=== PATIENT | male | born 1965 | race Caucasian/White ===

== ENCOUNTER 2016-10-18 17:33 | Emergency (ER) | payer OTHER ==
--- NOTE | 2016-10-18 19:30 | ED ---
Skin Complaint - HPI Summary HPI Summary: Pt here w/ laceration to Lt inner arm last night. He is unaware of how this occurred as he was intoxicated. Noticed today - sore. Denies sensation of FB but again he has no recall of events. Denies numbness, tingling, weakness here. No other injuries to report. Imms are UTD. - History of Current Complaint Chief Complaint: EDLacSutureRecheck Time Seen by Provider: 10/18/16 18:05 Stated Complaint: RIPPED FLESH UNDERARM Hx Obtained From: Patient Pain Intensity: 1 - Allergy/Home Medications Allergies/Adverse Reactions: Allergies Allergy/AdvReac Type Severity Reaction Status Date / Time Erythromycin Allergy Unknown Verified 10/18/16 17:35 Reaction Details PMH/Surg Hx/FS Hx/Imm Hx Previously Healthy: Yes Endocrine/Hematology History: Denies: Hx Anticoagulant Therapy, Hx Blood Disorders - Immunization History Date of Tetanus Vaccine: unknown Date of Influenza Vaccine: none Immunizations Up to Date: Yes Infectious Disease History: No Infectious Disease History: Denies: Hx of Known/Suspected MRSA, Traveled Outside the in Last 30 Days - Family History Known Family History: Positive: None - Social History Occupation: Employed Full-time - Computer work - typing, lifting Lives: Alone Alcohol Use: Weekly Hx Substance Use: No Substance Use Type: Reports: None Hx Tobacco Use: Yes Smoking Status (MU): Former Smoker Review of Systems Constitutional: Negative Eyes: Negative Negative: Photophobia, Blurred Vision Musculoskeletal: Negative - no neck pain Skin: Other - see HPI Neurological: Negative Negative: Headache, Weakness, Paresthesia, Numbness, Syncope, Slurred Speech Psychological: Normal All Other Systems Reviewed And Are Negative: Yes Physical Exam Triage Information Reviewed: Yes Vital Signs On Initial Exam: Initial Vitals Temp Pulse Resp BP Pulse Ox 98.5 F 83 16 143/77 95 10/18/16 17:35 10/18/16 17:35 10/18/16 17:35 10/18/16 17:35 10/18/16 17:35 Vital Signs Reviewed: Yes Appearance: Positive: Well-Appearing, No Pain Distress, Well-Nourished Skin: Positive: Warm - flap of dermis retracted with underlying subcutaneous tissue along central Lt inner arm - distal to axilla - no active d/c Head/Face: Positive: Normal Head/Face Inspection Eyes: Positive: Normal, EOMI ENT: Positive: Hearing grossly normal Respiratory/Lung Sounds: Positive: Breath Sounds Present Cardiovascular: Positive: Pulses are Symmetrical in both Upper and Lower Extremities Musculoskeletal: Positive: Normal, Strength/ROM Intact Neurological: Positive: Normal, Sensory/Motor Intact, Alert, Oriented to Person Place, Time, CN Intact II-III Psychiatric: Positive: Normal Procedures - Laceration/Wound Repair 1 Location: upper extremity - Lt inner arm Description: Irregular - skin tear with flap - jagged edge Anesthesia: Local, 1.0%, Lido - 20cc Length, Depth and Shape: 8cm c-shaped flap x 3mm (dermis) Betadine Prep?: Yes Irrigated w/ Saline (ccs): 100 - hibaclens with sterile water Laceration/Wound Explored: clean Closure: Single Layer Suture Type: Nylon - 5-0, 4-0 Number of Sutures: 11 - 10 simple interrupted; 1 modified purse string Layer Closure?: No Sterile Dressing Applied?: Yes - triple anbx ointment + sterile gauze + MERLIN wrap Diagnostics - Vital Signs Vital Signs Temp Pulse Resp BP Pulse Ox 10/18/16 17:37 98.4 F 81 16 143/77 97 10/18/16 17:35 98.5 F 83 16 143/77 95 - Laboratory Lab Statement: Any lab studies that have been ordered have been reviewed, and results considered in the medical decision making process. Course/Dx - Course Course Of Treatment: Pt here w/ Lt inner arm laceration which occurred last night. He was intoxicated at the time of injury so does not recall the mechanism nor any contact he had with the wound until he woke up this morning. Reports no bleeding he recalls. Cleaned and dressed prior to arrival. Will start anbx given the nature of the injury and lack of history. Wound closed. Advised care (wound cleansing, avoiding FROM to prevent tearing sutures) and close f/u w/ plastic surgery to monitor healing. Reviewed danger s/sx of when to return to ED - pt agrees w/ plan,. - Diagnoses Provider Diagnoses: Arm laceration Discharge - Discharge Plan Condition: Stable Disposition: HOME Prescriptions: Cephalexin CAP* [Keflex CAP*] 500 mg PO BID #18 cap Patient Education Materials: Laceration (ED), Care For Your Stitches (ED) Forms: *Work Release Referrals: Castillo Escalona MD [Primary Care Provider] - Additional Instructions: Keep dressing in place for 48 hours - after this time you may remove - gently wash wound with soap and water - rinse well and pat dry with clean cloth - reapply triple antibiotic ointment and clean gauze dressing with MERLIN wrap. Follow-up with plastic surgery in tomorrow - call to schedule an appointment in the morning. Complete antibiotics as directed You may apply ice to the area for pain relief/swelling. You may also take ibuprofen with food for pain/swelling. *If you develop redness, swelling, streaking, purulent drainage, fever, chills, return to ED
[2016-10-18] MEDS ORDERED: Lidocaine 2% 10 ML* VIAL INJ ONE (19:44)
--- NOTE | 2016-10-18 19:53 | RAD ---
HISTORY: Penetrating trauma, evaluate for radiopaque foreign body COMPARISONS: None VIEWS: 2, Frontal and lateral views of the left upper arm FINDINGS: BONE DENSITY: Normal. BONES: There is no displaced fracture. JOINTS: There is no arthropathy. ALIGNMENT: There is no dislocation. SOFT TISSUES: Unremarkable. OTHER FINDINGS: There is no radiopaque foreign body. There is metallic jewelry noted in relation to the chest wall. IMPRESSION: NO ACUTE OSSEOUS INJURY. NO RADIOPAQUE FOREIGN BODY. IF SYMPTOMS PERSIST, RECOMMEND REPEAT IMAGING.
[2016-10-18] MEDS ORDERED: Lidocaine 1% INJ* 10 MG/ML 30 ML SDV ONE (20:06)
[2016-10-18] MEDS ORDERED: Lidocaine 1% INJ* 10 MG/ML 30 ML SDV INJ ONE (20:14)
[2016-10-18] MEDS ORDERED: Cephalexin CAP* 500 MG PO ONE (21:15)
[2016-10-18 22:07] VITALS: BP 131/74
== END 2016-10-18 22:06 | disposition home or self-care (01) ==
LOC: ED 17:33
DX: S41.112A Laceration without foreign body of left upper arm, initial encounter (principal); X58.XXXA Exposure to other specified factors, initial encounter; Y92.9 Unspecified place or not applicable
CPT/HCPCS: 12004; 96372; 99282; A9270-GY; J2001

== ENCOUNTER 2016-10-25 19:36 | Emergency (ER) | payer OTHER ==
[2016-10-25 19:47] VITALS: BP 136/67
--- NOTE | 2016-10-25 20:46 | ED ---
Upper Extremity Pain - HPI Summary HPI Summary: 51M presents with bleeding from laceration on left arm. He states had sutures placed here a week ago. He occasionally has yellow drainage from the area. He denies any fever or spreading redness. HE has been placing neosporin and wrapping the area at night. He states the bleeding is minimal and occurs when he takes the bandage of. - History of Current Complaint Chief Complaint: EDLacSutureRecheck Stated Complaint: BLEED UNDER LT ARM FROM STITCHES Time Seen by Provider: 10/25/16 19:58 - Allergies/Home Medications Allergies/Adverse Reactions: Allergies Allergy/AdvReac Type Severity Reaction Status Date / Time Erythromycin Allergy Unknown Verified 10/18/16 17:35 Reaction Details PMH/Surg Hx/FS Hx/Imm Hx Endocrine/Hematology History: Denies: Hx Anticoagulant Therapy, Hx Blood Disorders, Hx Diabetes Cardiovascular History: Denies: Hx Pacemaker/ICD - Immunization History Date of Tetanus Vaccine: unknown Date of Influenza Vaccine: none Infectious Disease History: No Infectious Disease History: Denies: Hx of Known/Suspected MRSA, Traveled Outside the [place] in Last 30 Days - Family History Known Family History: Positive: None - Social History Alcohol Use: Weekly Hx Substance Use: No Substance Use Type: Reports: None Hx Tobacco Use: Yes Smoking Status (MU): Former Smoker Review of Systems Negative: Fever Negative: Chest Pain Negative: Shortness Of Breath Positive: Other - bleeding from laceration All Other Systems Reviewed And Are Negative: Yes Physical Exam Triage Information Reviewed: Yes Vital Signs On Initial Exam: Initial Vitals Temp Pulse Resp BP Pulse Ox 97.7 F 78 16 136/67 100 10/25/16 19:44 10/25/16 19:44 10/25/16 19:44 10/25/16 19:44 10/25/16 19:44 Vital Signs Reviewed: Yes Appearance: Positive: Well-Appearing Skin: Positive: Warm, Dry, Other - 4cm healing laceration with 11 sutures present on left medial aspect of humerus, minimial bleeding on bandage but no active bleeding, no dehiscence or open areas, no drainage Head/Face: Positive: Normal Head/Face Inspection Eyes: Positive: Normal, Conjunctiva Clear Respiratory/Lung Sounds: Positive: Clear to Auscultation, Breath Sounds Present Cardiovascular: Positive: Normal, RRR Musculoskeletal: Positive: Strength/ROM Intact - left arm Diagnostics - Vital Signs Vital Signs Temp Pulse Resp BP Pulse Ox 10/25/16 19:44 97.7 F 78 16 136/67 100 - Laboratory Lab Statement: Any lab studies that have been ordered have been reviewed, and results considered in the medical decision making process. Course/Dx - Course Course Of Treatment: 51M presents with bleeding from laceration on left arm. He states had sutures placed here a week ago. He occasionally has yellow drainage from the area. He denies any fever or spreading redness. He has been placing neosporin and wrapping the area at night. He states the bleeding is minimal and occurs when he takes the bandage of. on exam healing laceration present with no active bleeding or discharge. dr jones examined wound and agrees that looked good. will get wound culture but patient already on bactrim and no infection seen so will not add anything at this point. patient understands and agrees with plan. - Diagnoses Differential Diagnosis/HQI/PQRI: Positive: Other - healing wound, dehiscence, laceration Provider Diagnoses: Healing laceration Discharge - Discharge Plan Condition: Good Disposition: HOME Referrals: Castillo Escalona MD [Primary Care Provider] - Additional Instructions: Continue place neosporin Follow up with primary for sutures removal or wednesday Return to ED or urgent care if sutures can not be removed by primary by Wednesday Return to ED if develop any spreading redness or fever or any new or worsening symptoms
== END 2016-10-25 21:08 | disposition home or self-care (01) ==
LOC: ED 19:36
DX: Z09 Encounter for follow-up examination after completed treatment for conditions other than malignant neoplasm (principal); Z87.891 Personal history of nicotine dependence
CPT/HCPCS: 87070; 87205

== ENCOUNTER 2017-05-01 20:31 | Emergency (ER) | payer OTHER ==
[2017-05-01 22:58] VITALS: BP 133/78
--- NOTE | 2017-05-02 07:37 | RAD ---
HISTORY: Loss of consciousness, head injury 4 days ago COMPARISONS: None TECHNIQUE: Multiple contiguous axial CT scans were obtained of the head without intravenous contrast. FINDINGS: Evaluation is limited by streak artifact from metallic jewelry in the patient's ears. HEMORRHAGE/INFARCT: There is no hemorrhage or acute infarct. MASSES/SHIFT: There is no mass or shift. EXTRA-AXIAL SPACES: There are no extra-axial fluid collections. SULCI AND VENTRICLES: The sulci and ventricles are normal in size and position for the patient's stated age. CEREBRUM: There are no focal parenchymal abnormalities. BRAINSTEM: There are no focal parenchymal abnormalities. CEREBELLUM: There are no focal parenchymal abnormalities. VESSELS: The vessels are grossly normal. PARANASAL SINUSES: The paranasal sinuses are clear. ORBITS: The orbits are unremarkable. BONES AND SOFT TISSUE: No bone or soft tissue abnormalities are noted. OTHER: None IMPRESSION: NO ACUTE INTRACRANIAL PATHOLOGY.
--- NOTE | 2017-05-04 19:28 | ED ---
Karen Mendoza Abhishek, scribed for Alan Harp MD on 05/01/17 at 2215 . Head Injury - HPI Summary HPI Summary: This patient is a 52 year old M presenting to [facility] with a chief complaint of head injury since 4 days ago. Pt states he has had a prior recent head injury that resulted in a laceration approximately 4 days ago. Pt states he fell into a table and lost LOC post injury. The patient rates the pain 1/10 in severity. Symptoms aggravated by nothing. Symptoms alleviated by nothing. Patient reports bleeding. Patient denies dizziness, and nausea. Pt states he received his last Tetnus 8 months ago. Medications reviewed and reported. Allergies noted and reported - History Of Current Complaint Chief Complaint: EDHeadInjury Stated Complaint: HEAD INJURY Hx Obtained From: Patient Mechanism Of Injury: Blunt Trauma - On a table Severity Currently: Mild Severity Initially: Mild Pain Intensity: 1 Pain Scale Used: 0-10 Numeric Location of Head Injury: Parietal - Left parietal - Allergies/Home Medications Allergies/Adverse Reactions: Allergies Allergy/AdvReac Type Severity Reaction Status Date / Time erythromycin base Allergy Unknown Verified 05/01/17 20:36 Reaction Details PMH/Surg Hx/FS Hx/Imm Hx Endocrine/Hematology History: Denies: Hx Anticoagulant Therapy, Hx Blood Disorders, Hx Diabetes Cardiovascular History: Denies: Hx Pacemaker/ICD - Immunization History Date of Tetanus Vaccine: unknown Date of Influenza Vaccine: none Immunizations Up to Date: Yes Infectious Disease History: No Infectious Disease History: Denies: Hx of Known/Suspected MRSA, Traveled Outside the [place] in Last 30 Days - Family History Known Family History: Positive: None - Social History Alcohol Use: Weekly Hx Substance Use: No Substance Use Type: Reports: None Hx Tobacco Use: Yes Smoking Status (MU): Former Smoker Review of Systems Constitutional: Negative Eyes: Negative ENT: Negative Cardiovascular: Negative Respiratory: Negative Gastrointestinal: Negative Genitourinary: Negative Musculoskeletal: Negative Skin: Other - Lacertion on the right hand; 5th finger laceration Neurological: Negative Psychological: Normal All Other Systems Reviewed And Are Negative: Yes Physical Exam Triage Information Reviewed: Yes Vital Signs On Initial Exam: Initial Vitals Temp Pulse Resp BP Pulse Ox 97.8 F 72 14 161/94 96 05/01/17 20:39 05/01/17 20:39 05/01/17 20:39 05/01/17 20:39 05/01/17 20:39 Vital Signs Reviewed: Yes Diagnostics - Vital Signs Vital Signs Temp Pulse Resp BP Pulse Ox 05/01/17 20:39 97.8 F 72 14 161/94 96 - Laboratory Lab Statement: Any lab studies that have been ordered have been reviewed, and results considered in the medical decision making process. - CT Head CT Interpretation Completed By: Radiologist - Negative CT Head scan. ED physician has reviewed this radiology report and agrees. Head Injury Course/Dx Course Of Treatment: The pt is a 52 y/o male with a chief complaint of laceration. The pt reportedly received this laceration in the left parietal region of the head after falling down and contact a portion of a table. The obset of the laceration/wound was 4 days ago. The wound is currently not discharging blood. The pt denies dizziness, and nausea. Immediately after the injury, pt states there was a "brief" LOC. The pt received a CT brain revealving normal head according to the ED physician. We were unable to sulture the wound due to the time duration since onset (4 days). The pt will be discharged home with a dx of laceration and mild concussion. - Diagnoses Provider Diagnoses: Laceration, Mild concussion Discharge - Discharge Plan Condition: Stable Disposition: HOME Patient Education Materials: Concussion (ED) Referrals: Castillo Escalona MD [Primary Care Provider] - The documentation as recorded by the Karen capps Abhishek accurately reflects the service I personally performed and the decisions made by , Alan Harp MD.
== END 2017-05-01 23:00 | disposition home or self-care (01) ==
LOC: ED 20:31
DX: S06.0X1A Concussion with loss of consciousness of 30 minutes or less, initial encounter (principal); S01.91XA Laceration without foreign body of unspecified part of head, initial encounter; W19.XXXA Unspecified fall, initial encounter; W22.09XA Striking against other stationary object, initial encounter; Y92.9 Unspecified place or not applicable; Z87.891 Personal history of nicotine dependence; Z88.3 Allergy status to other anti-infective agents
CPT/HCPCS: 70450; 99281

== ENCOUNTER 2018-10-07 20:52 | Emergency (ER) | payer OTHER ==
--- NOTE | 2018-10-07 22:35 | ED ---
Back Pain - HPI Summary HPI Summary: 53-year-old male presents with complaints of right-sided low back pain after a fall that occurred on 10/05/2018. Patient states he tripped and fell backwards landing on his buttocks. He was able to get up and ambulate immediately after the injury. States he subsequently developed the right-sided low back pain that is progressively worsened over the last 2 days. Pain radiates down the back of his right leg to about the mid thigh. Pain worsens with any type of movement or ambulation. Has been taking ibuprofen 200 mg up to 6 tablets at a time with very little relief in his pain. Last dose was at approximately 6 PM this evening. States he has used a heating pad with some relief in the pain. Denies numbness, tingling, weakness of the extremities, or loss of bowel or bladder control. - History of Current Complaint Chief Complaint: EDBackInjuryPain Stated Complaint: BACK PAIN PER PT Time Seen by Provider: 10/07/18 22:31 Hx Obtained From: Patient Pain Intensity: 7 - Allergies/Home Medications Allergies/Adverse Reactions: Allergies Allergy/AdvReac Type Severity Reaction Status Date / Time amoxicillin Allergy Unknown Verified 10/07/18 21:03 Reaction Details erythromycin base Allergy Unknown Verified 10/07/18 21:03 Reaction Details PMH/Surg Hx/FS Hx/Imm Hx Endocrine/Hematology History: Denies: Hx Anticoagulant Therapy, Hx Blood Disorders, Hx Diabetes Cardiovascular History: Reports: Hx Hypertension Denies: Hx Pacemaker/ICD Psychiatric History: Reports: Hx Depression - Immunization History Date of Tetanus Vaccine: unknown Date of Influenza Vaccine: none Immunizations Up to Date: Yes Infectious Disease History: No Infectious Disease History: Denies: Hx of Known/Suspected MRSA, Traveled Outside the [place] in Last 30 Days - Family History Known Family History: Positive: Non-Contributory - Social History Occupation: Unemployed Lives: Alone Alcohol Use: Weekly Hx Substance Use: No Substance Use Type: Reports: None Hx Tobacco Use: Yes Smoking Status (MU): Former Smoker Review of Systems Negative: Fever, Chills Negative: Palpitations, Chest Pain Negative: Shortness Of Breath Negative: Abdominal Pain, Vomiting, Nausea Negative: dysuria, frequency, hematuria, urgency Musculoskeletal: Other - See HPI Negative: Rash, Bruising Negative: Weakness, Paresthesia, Numbness All Other Systems Reviewed And Are Negative: Yes Physical Exam - Summary Physical Exam Summary: GENERAL APPEARANCE: Well developed, well nourished, alert and cooperative, and appears to be in no acute distress. CARDIAC: Normal S1 and S2. No S3, S4 or murmurs. Rhythm is regular. There is no peripheral edema, cyanosis or pallor. Extremities are warm and well perfused. Capillary refill is less than 2 seconds. Peripheral pulses intact. LUNGS: Clear to auscultation without rales, rhonchi, wheezing or diminished breath sounds. ABDOMEN: Positive bowel sounds. Soft, nondistended, nontender. No guarding or rebound. No masses or hepatosplenomegally. MUSKULOSKELETAL: ROM intact to all extremities. No joint erythema or tenderness. Normal muscular development. BACK: Examination of the spine reveals no midline spinal deformity or tenderness , there is right-sided lumbar paraspinous soft tissue tenderness with muscular spasm noted. Lower extremity strength normal bilaterally. Circulation and sensation intact. SKIN: Skin normal color, texture and turgor with no lesions or eruptions. Triage Information Reviewed: Yes Vital Signs On Initial Exam: Initial Vitals Temp Pulse Resp BP Pulse Ox 97.9 F 66 16 133/88 97 10/07/18 21:00 10/07/18 21:00 10/07/18 21:00 10/07/18 21:00 10/07/18 21:00 Vital Signs Reviewed: Yes Diagnostics - Vital Signs Vital Signs Temp Pulse Resp BP Pulse Ox 10/07/18 22:00 57 97 10/07/18 21:50 56 122/71 97 10/07/18 21:20 60 135/71 97 10/07/18 21:00 97.9 F 66 16 133/88 97 - Laboratory Lab Statement: Any lab studies that have been ordered have been reviewed, and results considered in the medical decision making process. - Radiology No standard instances Radiology Interpretation Completed By: ED Physician - No acute fracture. Mild scoliosis and DDD. Back Pain Course/Dx - Course Course Of Treatment: 53-year-old male presents with complaints of right-sided low back pain after a fall that occurred on 10/05/2018. Patient states he tripped and fell backwards landing on his buttocks. He was able to get up and ambulate immediately after the injury. States he subsequently developed the right-sided low back pain that is progressively worsened over the last 2 days. Pain radiates down the back of his right leg to about the mid thigh. Pain worsens with any type of movement or ambulation. Has been taking ibuprofen 200 mg up to 6 tablets at a time with very little relief in his pain. Last dose was at approximately 6 PM this evening. States he has used a heating pad with some relief in the pain. Denies numbness, tingling, weakness of the extremities , or loss of bowel or bladder control. Afebrile. Vital signs stable. Patient had no midline spinal deformity or tenderness, there is right-sided lumbar paraspinous soft tissue tenderness with muscular spasm noted. Lower extremity strength normal bilaterally. Circulation and sensation intact. Patient was given hydrocodoneacetaminophen 5 mg/325 mg 1 tablet and cyclobenzaprine 10 mg 1 tablet for the pain with improvement in his symptoms. X-ray showed no acute fracture. There was some mild scoliosis and degenerative disc disease noted. Results were reviewed with the patient. Recommending conservative treatment for acute low back pain with right-sided sciatica. Patient to continue to use ibuprofen 600 mg every 8 hours as needed for pain. I provided him with a short course of the hydrocodoneacetaminophen 5 mg/325 mg 1 tablet every 8 hours as needed for severe pain as well as cyclobenzaprine 5 mg 1 tablet every 8 hours as needed for spasm. He is to continue to use a heating pad for 15-20 minutes at least 4 times a day. He is to follow-up with his primary care provider in 3 days especially if symptoms are not improving. Anticipatory guidance and warning symptoms were reviewed with the patient. Verbalizes understanding and agrees with plan of care. - Diagnoses Differential Diagnosis/HQI/PQRI: Positive: Fracture, Herniated Disc, Strain Provider Diagnoses: Acute low back pain with right-sided sciatica Discharge - Sign-Out/Discharge Documenting (check all that apply): Patient Departure Patient Received Moderate/Deep Sedation with Procedure: No - Discharge Plan Condition: Stable Disposition: HOME Prescriptions: Cyclobenzaprine (NF) [Cyclobenzaprine 5 MG (NF)] 5 mg PO TID PRN #15 tab PRN Reason: Spasms - Back Hydrocodone/Acetaminophen [Hydrocodone/Acetaminophen 5-325 mg] 1 tab PO Q8HR PRN #6 tab MDD 3 PRN Reason: Pain - Severe Patient Education Materials: Acute Low Back Pain (ED) Referrals: Castillo Escalona MD [Primary Care Provider] - 3 Days Additional Instructions: The x-ray of your lumbosacral spine performed in the emergency room tonight showed no evidence of fracture. With low back pain it is important to try to remain as active as possible however you should avoid strenuous activity, heavy lifting, or any activities that cause pain. Continue to take ibuprofen 600 mg every 8 hours as needed for pain. Take hydrocodoneacetaminophen 5 mg/325 mg 1 tablet every 8 hours as needed for severe pain. Take cyclobenzaprine 10 mg 1 tablet every 8 hours as needed for muscle spasm. Be aware that the hydrocodone and the cyclobenzaprine will both cause drowsiness he should not take these and drive or operate machinery. Use a heating pad to the affected area for 15-20 minutes at least 4 times a day to help with the pain and to relax the muscles. Follow-up with your primary care provider in 3 days if symptoms are not improving. Return to the emergency room if you had severe pain that is not managed with the pain medication, develop weakness, numbness, tingling in the legs, lose control of her bowel or bladder, you are unable to ambulate, or have any worsening of symptoms. - Billing Disposition and Condition Condition: STABLE Disposition: Home
[2018-10-07] MEDS ORDERED: HYDROcodone/ACETAMIN 5-325 MG* 1 TAB PO ONE (22:41)
[2018-10-07] MEDS ORDERED: Cyclobenzaprine TAB* 10 MG PO ONE (22:41)
[2018-10-08 00:06] VITALS: BP 152/87
== END 2018-10-08 00:05 | disposition home or self-care (01) ==
LOC: ED 20:52
DX: M54.41 Lumbago with sciatica, right side (principal); I10 Essential (primary) hypertension; F32.9 Major depressive disorder, single episode, unspecified; Z88.1 Allergy status to other antibiotic agents; Z87.891 Personal history of nicotine dependence; M51.36 Other intervertebral disc degeneration, lumbar region; M41.9 Scoliosis, unspecified; M47.896 Other spondylosis, lumbar region
CPT/HCPCS: 72110; 99282; A9270-GY

== ENCOUNTER 2023-11-21 16:49 | Observation (INO) ==
[2023-11-21] MEDS: NS 0.9% 1000 ml BAG 1,000 ML IV ONE (19:40)
[2023-11-21] MEDS: Ondansetron 4 mg VIAL 2 MG/ML 2 ml VIAL IV ONE ×2 (19:40→20:50)
[2023-11-21 19:58] LABS: ABS Basophils 0.1 10^3/uL (0.0-0.1); ABS Eosinophils 0.1 10^3/uL (0.0-0.5); ABS Lymphocytes 1.2 10^3/uL (1.0-4.8); ABS Neutrophils 9.7 10^3/uL (1.5-7.6); ABS Nucleated RBC 0.01 10^3/ul; Eosinophil % 0.8 %; Hematocrit 35.8 % (38-53); Hemoglobin 12.2 g/dL (13.2-16.3); Lymphocyte % 9.7 %; Mean Corpuscular Hgb Conc 34.1 g/dL (31-36); Mean Corpuscular Volume 99.6 fL (80-97); Mean Platelet Volume 10.4 fL (7.5-11.2); Nucleated Red Blood Cells % 0.1 %/100WBC (0.0-0.8); Platelet Count 305 10^3/uL (150-450); Red Blood Count 3.59 10^6/uL (4.06-5.63); Red Cell Distribution Width 14.8 % (12-17); White Blood Count 12.1 10^3/uL (3.6-10.2)
[2023-11-21 20:38] LABS: Albumin 4.2 g/dL (3.2-5.2); Albumin/Globulin Ratio 1.1 (1-3); C Reactive Protein 124.62 mg/L (<8.01); Calcium 10.4 mg/dL (8.6-10.3); Creatinine, Serum 2.14 mg/dL (0.67-1.17); Globulin 3.8 g/dL (2-4); Potassium 4.5 mmol/L (3.5-5.0); Total Bilirubin 2.6 mg/dL (0.2-1.0); eGFR CKD-EPI 34.8 (>60)
[2023-11-21] MEDS: Morphine 2 MG/ML SYRINGE IV ONE (20:50)
[2023-11-21 21:14] LABS: Activated Partial Thrombo Time 33.9 seconds (26.0-38.0); INR 1.11 (0.85-1.14)
[2023-11-21 21:37] LABS: Hepatitis B Core IgM Nonreactive (Nonreactive)
[2023-11-21] MEDS: Iodixanol (CONTRAST) 320 MG/ML 100 ML SDV IV ONE (22:10)
[2023-11-21] MEDS: Lactated Ringers 1000 ml BAG 1,000 ML IV ONE (22:13)
[2023-11-21 22:35] LABS: Urine Appearance Clear; Urine Bilirubin Negative (Negative); Urine Blood Negative (Negative); Urine Color Yellow; Urine Glucose Negative (Negative); Urine Ketones Trace (Negative); Urine Nitrite Negative (Negative); Urine Protein 1+ (>=30 mg/dL) (Negative); Urine Specific Gravity 1.018 (1.002-1.030); Urine Urobilinogen Negative (Negative); Urine pH 5.5 (5.0-8.0)
[2023-11-21 22:57] LABS: Direct Bilirubin 1.4 mg/dL (0.03-0.18); Indirect Bilirubin 1.2 mg/dL (0.3-1.0)
[2023-11-21] MEDS: Lidocaine PATCH 5% PATCH TRANSDERM ONE (23:01)
[2023-11-21 23:20] LABS: Urine Bacteria Absent /HPF (Absent); Urine Red Blood Cell Trace(0-2/hpf) /HPF (0-Trace); Urine Squamous Epithelial Cell Present /HPF (Absent); Urine White Blood Cell Absent /HPF (0-Trace)
[2023-11-22] MEDS: Morphine 2 MG/ML SYRINGE IV ONE (00:36)
[2023-11-22] MEDS: Metoclopramide 5 MG/ML VIAL (10 mg) IV SLOW PU ONE (00:37)
[2023-11-22] MEDS ORDERED: Morphine 2 MG/ML SYRINGE IV PRN (01:53)
[2023-11-22] MEDS: HYDROmorphone 1 MG/1 ML SYRINGE IV SLOW PU PRN (02:57)
[2023-11-22] MEDS: Heparin 5000 UNITS/ML 1 mL VIAL SUBCUT SCH (06:19)
[2023-11-22] MEDS ORDERED: Polyethylene Glycol 3350 17 GM PACKET PO PRN (09:57)
[2023-11-22] MEDS ORDERED: Senna TAB 8.6 mg TAB PO PRN (09:57)
[2023-11-22] MEDS: Ondansetron 4 mg VIAL 2 MG/ML 2 ml VIAL IV PRN ×2 (10:33→21:44)
[2023-11-22] MEDS: Lactated Ringers 1000 ml BAG 1,000 ML IV SCH (10:33)
[2023-11-22 11:07] LABS: ABS Basophils 0.1 10^3/uL (0.0-0.1); ABS Eosinophils 0.1 10^3/uL (0.0-0.5); ABS Lymphocytes 0.8 10^3/uL (1.0-4.8); ABS Neutrophils 8.1 10^3/uL (1.5-7.6); Eosinophil % 1.3 %; Hematocrit 32.4 % (38-53); Hemoglobin 11.2 g/dL (13.2-16.3); Lymphocyte % 7.9 %; Mean Corpuscular Hemoglobin 34.7 pg (27-33); Mean Corpuscular Hgb Conc 34.7 g/dL (31-36); Platelet Count 264 10^3/uL (150-450); Red Blood Count 3.24 10^6/uL (4.06-5.63); Red Cell Distribution Width 14.7 % (12-17); White Blood Count 10.1 10^3/uL (3.6-10.2)
[2023-11-22 12:07] LABS: Albumin 3.6 g/dL (3.2-5.2); Albumin/Globulin Ratio 1.1 (1-3); Calcium 8.9 mg/dL (8.6-10.3); Creatinine, Serum 1.59 mg/dL (0.67-1.17); Globulin 3.3 g/dL (2-4); Potassium 4.7 mmol/L (3.5-5.0); Total Bilirubin 2.5 mg/dL (0.2-1.0); Total Protein 6.9 g/dL (6.4-8.9); eGFR CKD-EPI 49.7 (>60)
[2023-11-22 15:09] LABS: Folate 3.71 ng/mL (5.90-24.80)
[2023-11-22] MEDS: Enoxaparin 40 MG/0.4 ML SYR SUBCUT SCH (17:48)
[2023-11-23 05:57] LABS: ABS Eosinophils 0.3 10^3/uL (0.0-0.5); ABS Lymphocytes 0.7 10^3/uL (1.0-4.8); ABS Monocytes 0.9 10^3/uL (0.0-1.1); ABS Neutrophils 7.3 10^3/uL (1.5-7.6); Eosinophil % 2.9 %; Hematocrit 31.7 % (38-53); Hemoglobin 10.5 g/dL (13.2-16.3); Lymphocyte % 7.7 %; Mean Corpuscular Hemoglobin 33.1 pg (27-33); Mean Corpuscular Volume 100.1 fL (80-97); Mean Platelet Volume 10.2 fL (7.5-11.2); Platelet Count 243 10^3/uL (150-450); Red Blood Count 3.17 10^6/uL (4.06-5.63); Red Cell Distribution Width 14.9 % (12-17); White Blood Count 9.2 10^3/uL (3.6-10.2)
[2023-11-23 06:15] LABS: Creatinine, Serum 1.38 mg/dL (0.67-1.17); Magnesium 1.7 mg/dL (1.9-2.7); Potassium 4.5 mmol/L (3.5-5.0); eGFR CKD-EPI 58.9 (>60)
[2023-11-23] MEDS: Ondansetron ODT 4 mg TAB 4 MG TAB PO PRN (08:45)
[2023-11-23] MEDS ORDERED: HYDROmorphone 1 MG/1 ML SYRINGE IV SLOW PU PRN (09:22)
[2023-11-23] MEDS: Ondansetron ODT 4 mg TAB 4 MG TAB PO SCH (12:38)
[2023-11-23 13:47] VITALS: BP 116/65
== END 2023-11-23 19:05 | disposition home or self-care (01) ==
LOC: EDHOLD 16:49 → ED 16:49 → SUATTDRO 11-22 01:22 → MED 11-22 12:33
PROVIDERS: ADMIT Internal Medicine; ATTEND Hospitalist

== ENCOUNTER 2023-12-28 10:17 | Inpatient (IN) ==
[2023-12-28 10:55] LABS: PCO2 Arterial 27 mmHg (35-45); PO2 Arterial 87 mmHg (80-100)
[2023-12-28 11:13] LABS: INR 1.16 (0.85-1.14)
[2023-12-28 11:24] LABS: Hematocrit 32.5 % (38-53); Hemoglobin 10.8 g/dL (13.2-16.3); Mean Corpuscular Hgb Conc 33.1 g/dL (31-36); Mean Corpuscular Volume 99.5 fL (80-97); Red Blood Count 3.26 10^6/uL (4.06-5.63); Red Cell Distribution Width 18.5 % (12-17); White Blood Count 13.8 10^3/uL (3.6-10.2)
[2023-12-28 11:27] LABS: High Sens Troponin Baseline 23 pg/mL (<20)
[2023-12-28 11:41] LABS: ALT 50 U/L (7-52); AST 282 U/L (13-39); Albumin/Globulin Ratio 0.9 (1-3); Alcohol, S < 13 mg/dL (<13); Alkaline Phosphatase 827 U/L (35-149); Anion Gap 18 mmol/L (2-16); Blood Urea Nitrogen 28 mg/dL (6-24); CO2 Carbon Dioxide 14 mmol/L (22-32); Calcium 9.2 mg/dL (8.6-10.3); Chloride 108 mmol/L (101-111); Creatinine, Serum 1.89 mg/dL (0.67-1.17); Globulin 3.3 g/dL (2-4); Glucose 87 mg/dL (70-100); Potassium 4.1 mmol/L (3.5-5.0); Sodium 140 mmol/L (135-145); Total Bilirubin 3.8 mg/dL (0.2-1.0); Total Protein 6.3 g/dL (6.4-8.9); eGFR CKD-EPI 40.4 (>60)
[2023-12-28 12:12] LABS: RBC Morphology Normal (Normal)
[2023-12-28 12:13] LABS: ABS Lymphocytes 0.6 10^3/ul (1.0-4.8); ABS Monocytes 1.9 10^3/ul (0.0-1.1); ABS Neutrophils 10.6 10^3/ul (1.5-7.6)
[2023-12-28 12:16] LABS: Mean Platelet Volume 11.6 fL (7.5-11.2); Platelet Count 95 10^3/uL (150-450)
[2023-12-28] MEDS: Lactated Ringers 1000 ml BAG 1,000 ML IV SCH (12:16)
[2023-12-28 12:21] LABS: High Sensitivity Troponin 1 Hr 23 pg/mL (<20)
[2023-12-28] MEDS: Morphine 4 MG/ML VIAL (1 ml) IV ONE ×2 (12:43→16:58)
[2023-12-28] MEDS: Ondansetron 4 mg VIAL 2 MG/ML 2 ml VIAL IV ONE (12:43)
[2023-12-28 12:48] LABS: Direct Bilirubin 2.1 mg/dL (0.03-0.18); Indirect Bilirubin 1.7 mg/dL (0.3-1.0)
[2023-12-28] MEDS: Iodixanol 320 (CONTRAST) 100 ML SDV IV ONE (13:39)
[2023-12-28] MEDS: cefTRIAXone 2 gm/50 mL D5W 2 GM/50 ML BAG IV ONE (16:03)
[2023-12-28 18:26] LABS: Body Fluid Total Nucleated 189 /mcL
[2023-12-28 18:33] LABS: Body Fluid Appearance Clear; Body Fluid Color Yellow; Body Fluid Source Peritonial Fluid
[2023-12-28 19:37] LABS: Body Fluid Mono 26 %; Body Fluid Other Cells 4; Body Fluid Total Cells Counted 200
[2023-12-28 20:33] LABS: Urine Appearance Clear; Urine Bilirubin 1+ (Negative); Urine Blood Negative (Negative); Urine Color Yellow; Urine Glucose Negative (Negative); Urine Ketones 1+ (Negative); Urine Nitrite 1+ (Negative); Urine Protein 1+ (>=30 mg/dL) (Negative); Urine Specific Gravity 1.034 (1.002-1.030); Urine Urobilinogen 1+ (Negative); Urine pH 5.5 (5.0-8.0)
[2023-12-28 20:53] LABS: Urine Bacteria 1+ /HPF (Absent); Urine Red Blood Cell Trace(0-2/hpf) /HPF (0-Trace); Urine Squamous Epithelial Cell Present /HPF (Absent); Urine White Blood Cell 3+(>20/hpf) /HPF (0-Trace)
[2023-12-28] MEDS ORDERED: ALBUMIN HUMAN 5% IV ONE (22:15)
[2023-12-28] MEDS ORDERED: Polyethylene Glycol 3350 17 GM PACKET PO PRN (22:21)
[2023-12-28] MEDS: Lactulose 30 ml UDC PO SCH (23:14)
[2023-12-28] MEDS: Albumin Human 5% 12.5 GM/250 ML BTL IV ONE (23:27)
[2023-12-29] MEDS: ALBUMIN HUMAN 5% IV ONE (02:26)
[2023-12-29] MEDS: Azithromycin 500 mg/250 ml NS 500 MG/250 ML BAG IVPB SCH (06:26)
[2023-12-29 07:15] LABS: Hematocrit 30.9 % (38-53); Hemoglobin 10.3 g/dL (13.2-16.3); Mean Corpuscular Hemoglobin 32.9 pg (27-33); Mean Corpuscular Hgb Conc 33.3 g/dL (31-36); Mean Corpuscular Volume 98.8 fL (80-97); Red Blood Count 3.13 10^6/uL (4.06-5.63)
[2023-12-29 07:34] LABS: Albumin 2.8 g/dL (3.2-5.2); Calcium 9.1 mg/dL (8.6-10.3); Creatinine, Serum 2.36 mg/dL (0.67-1.17); Globulin 2.8 g/dL (2-4); Magnesium 1.7 mg/dL (1.9-2.7); Phosphorus 3.9 mg/dL (2.5-5.0); Potassium 4.4 mmol/L (3.5-5.0); Total Bilirubin 3.1 mg/dL (0.2-1.0); Total Protein 5.6 g/dL (6.4-8.9); eGFR CKD-EPI 30.9 (>60)
[2023-12-29] MEDS: Pantoprazole VIAL 40 MG VIAL IV SCH (08:02)
[2023-12-29] MEDS: NS 0.9% 1000 ml BAG 1,000 ML IV ONE (09:33)
[2023-12-29 10:04] LABS: Platelet Count 82 10^3/uL (150-450); RBC Morphology Normal (Normal)
[2023-12-29 10:05] LABS: ABS Eosinophils 0.1 10^3/ul (0.0-0.5); ABS Lymphocytes 0.3 10^3/ul (1.0-4.8); ABS Monocytes 0.5 10^3/ul (0.0-1.1); ABS Neutrophils 12.1 10^3/ul (1.5-7.6)
[2023-12-29] MEDS: Albumin Human 25% 25 GM/100 ML BTL IV ONE (10:36)
[2023-12-29 10:59] LABS: Hematocrit 30.5 % (38-53); Hemoglobin 9.9 g/dL (13.2-16.3); Mean Corpuscular Hemoglobin 32.5 pg (27-33); Mean Corpuscular Hgb Conc 32.3 g/dL (31-36); Mean Corpuscular Volume 100.6 fL (80-97); Mean Platelet Volume 12.1 fL (7.5-11.2); Platelet Count 84 10^3/uL (150-450); Red Blood Count 3.04 10^6/uL (4.06-5.63); Red Cell Distribution Width 18.6 % (12-17); White Blood Count 11.6 10^3/uL (3.6-10.2)
[2023-12-29 12:00] LABS: Calcium 8.2 mg/dL (8.6-10.3); Creatinine, Serum 2.29 mg/dL (0.67-1.17); Potassium 4.2 mmol/L (3.5-5.0); eGFR CKD-EPI 32.1 (>60)
[2023-12-29 12:43] LABS: ABS Lymphocytes 0.5 10^3/ul (1.0-4.8); ABS Monocytes 0.7 10^3/ul (0.0-1.1); ABS Neutrophils 10.4 10^3/ul (1.5-7.6); RBC Morphology Normal (Normal)
[2023-12-29 15:17] VITALS: BP 85/48
[2023-12-29] MEDS: Albumin Human 25% 12.5 GM/50 ML BTL IV SCH (15:46)
[2023-12-29] MEDS: Magnesium Sulfate 2 gm BAG 2 GM/50 ML BAG IVPB ONE (15:54)
[2023-12-29] MEDS: NS 0.9% 1000 ml BAG 1,000 ML IV SCH (15:54)
[2023-12-29] MEDS: cefTRIAXone 1 gm/50 mL D5W 1 GM/50 ML BAG IV SCH (16:02)
[2023-12-29] MEDS: Magnesium Sulfate IV 1GM/100ML 1 GM/100 ML BAG IV ONE (16:03)
[2023-12-29] MEDS: Scopolamine 1 mg/72hr PATCH TRANSDERM SCH (18:08)
[2023-12-29] MEDS: fentaNYL 100 mcg/2 ml 50 MCG/ML VIAL IV SLOW PU PRN (20:14)
[2023-12-30 13:44] LABS: Lactate Dehydrogenase, BF 48 U/L
[2023-12-31 09:54] LABS: Glucose, BF 87 mg/dL
[2023-12-31 09:58] LABS: Albumin, BF 1.2 g/dL; Fluid Type, Albumin PERITONEAL FLUID; Fluid Type, Protein, Total PERITONEAL FLUID; Total Protein, BF 2.1 g/dL
== END 2023-12-31 10:30 | disposition hospice, home (50) ==
LOC: ED 10:17 → EDHOLD 10:17 → SUATTDRO 19:48 → MEDTELE 23:39
PROVIDERS: ADMIT Student in an Organized Health Care Education/Training Program; ATTEND Internal Medicine